=== PATIENT | male | born 1935 | race Caucasian/White ===

== ENCOUNTER 2017-10-22 06:44 | Inpatient (IN) | payer OTHER, MEDICARE ==
[~2017-10-22 06:44] MED LIST: TRANEXAMIC ACID 1,000 MG in NS 100 ML IV ONE
[2017-10-22] MEDS ORDERED: ceFAZolin 2 GM/SWFI 2 GM/20 ML SYR IVP ONE (07:41)
[2017-10-22] MEDS ORDERED: fentaNYL 100 MCG/2 ML INJ IT ONE (07:41)
[2017-10-22] MEDS ORDERED: ACETAMINOPHEN 500 MG TAB PO ONE (07:41)
[2017-10-22] MEDS ORDERED: morphINE PF 5 MG/10 ML INJ IT ONE (07:41)
[2017-10-22] MEDS ORDERED: BACITRACIN 50,000 UNITS/10 ML SYR IRR ONE ×2 (08:09→08:10)
[2017-10-22] MEDS ORDERED: BUPIVACAINE 0.25% 30 ML SDV ONE (08:09)
[2017-10-22] MEDS ORDERED: CITRATE DEXTROSE SOLN 500 ML BAG ONE ×2 (08:09→12:06)
[2017-10-22] MEDS ORDERED: THROMBIN (BOVINE) 5,000 UNIT VIAL TP ONE (08:09)
--- NOTE | 2017-10-22 08:11 | PDANEPAE ---
ANE Past Medical History - Cardiovascular History Hx Hypertension: No Hx Arrhythmias: No Hx Chest Pain: No Hx Coronary Artery / Peripheral Vascular Disease: No Hx CHF / Valvular Disease: No Hx Palpitations: No - Pulmonary History Hx COPD: No Hx Asthma/Reactive Airway Disease: No Hx Recent Upper Respiratory Infection: No Hx Oxygen in Use at Home: No Hx Sleep Apnea: No - Neurologic History Hx Cerebrovascular Accident: No Hx Seizures: No Hx Dementia: No Neurologic History Comment: PARKINSONS - Endocrine History Hx Diabetes: No - Renal History Hx Renal Disorders: No - Liver History Hx Hepatic Disorders: No - Neurological & Psychiatric Hx Hx Neurological and Psychiatric Disorders: Yes Neurological / Psychiatric History Comment: PARKINSON - Cancer History Hx Cancer: Yes Cancer History Comment: SKIN - Congenital Disorder History Hx Congenital Disorders: No - GI History Hx Gastrointestinal Disorders: No - Other Health History Other Health History: bilateral cataracts - Chronic Pain History Chronic Pain: Yes (LOWER BACK) - Surgical History Prior Surgeries: DEEP BRAIN STIMULATOR and stimulators in chest 09/2013 AT [facility]. 2 lumbar back sx. R shoulder replacement. hernia ANE Review of Systems Review of Systems: - Exercise capacity METS (RN): 4 METS ANE Patient History - Allergies Allergies/Adverse Reactions: Penicillins Allergy (Verified 10/22/17 08:08) Unknown - Home Medications Home Medications: Carbidopa/Levodopa 25/100Mg [Sinemet 25/100 MG (*)] 0.5 tab PO QID@06,10,1330, 17 06/17/14 [Last Taken 07/31/15 17:00] Herbals/Supplements -Info Only 1 ea PO DAILY 06/17/14 [Last Taken 10/21/17] Vitamin B Complex [B Complex] 1 each PO DAILY 06/17/14 [Last Taken 10/21/17] clonazePAM [Klonopin (*)] 0.5 mg PO HS 06/17/14 [Last Taken 07/31/15 19:00] Ascorbic Acid [Vitamin C 250 mg (*)] 250 mg PO DAILY 08/01/15 [Last Taken ] Mcclure-3 Fatty Acids [Fish Oil 1000 mg (*)] 1,000 mg PO DAILY 08/01/15 [Last Taken 10/11/17] Acetaminophen [Tylenol 325mg (*)] 325 - 650 mg PO Q4HRS PRN 10/17/17 [Last Taken Unknown] Cholecalciferol Vit D3 [Vitamin D3 (*)] 1,000 units PO DAILY 10/17/17 [Last Taken 10/21/17] Escitalopram Oxalate [Lexapro] 10 mg PO DAILY 10/17/17 [Last Taken Unknown] Ferrous Sulfate [Ferrous Sulf 325 MG (*)] 325 mg PO TID 10/17/17 [Last Taken ] Gabapentin [Neurontin 300 MG (*)] 1,200 mg PO HS 10/17/17 [Last Taken Unknown] Melatonin [Melatonin 5 mg] 5 mg PO HS 10/17/17 [Last Taken Unknown] Pramipexole Di-HCl [Mirapex 0.25 mg (*)] 0.25 mg PO QID@06,10,1330,17 10/17/17 [ Last Taken Unknown] methYLPHENIDATE HCL [Ritalin 10mg (*)] 10 mg PO DAILY@1330 10/17/17 [Last Taken Unknown] - Smoking Hx Smoking Status: Former smoker ANE Labs/Vital Signs - Vital Signs Height: 177.8 cm Weight: 77.111 kg ANE Physical Exam - Airway Mallampati Score: Class 1 - ASA Status ASA Status: II ANE Anesthesia Plan Anesthesia Plan: general endotracheal anesthesia
[2017-10-22 08:55] LABS: PLATELET COUNT 182 10^3/uL (150-400)
[2017-10-22] MEDS ORDERED: LR 1,000 ML IV ONE (08:57)
[2017-10-22] MEDS ORDERED: fentaNYL 100 MCG/2 ML INJ ONE ×3 (08:57→12:09)
[2017-10-22] MEDS ORDERED: PROPOFOL/EMULSION 500 MG/50 ML BOTTLE IV ONE ×3 (08:58→11:32)
[2017-10-22] MEDS ORDERED: CHLORHEXIDINE GLUC HIBICLENS 118 ML BTL TP ONE (09:43)
[2017-10-22] MEDS ORDERED: PHENYLEPHRINE HCL 100 MCG/ML SYR ONE (11:55)
[2017-10-22] MEDS ORDERED: ROCURONIUM 50 MG/5 ML VIAL ONE (11:55)
[2017-10-22] MEDS ORDERED: ONDANSETRON 4 MG/2 ML VIAL ONE (11:55)
[2017-10-22] MEDS ORDERED: METOCLOPRAMIDE 10 MG/2 ML VIAL ONE (11:55)
[2017-10-22] MEDS ORDERED: morphINE PF 5 MG/10 ML INJ ONE (12:09)
[2017-10-22] MEDS ORDERED: ceFAZolin 1 GM VIAL ONE (12:24)
--- NOTE | 2017-10-22 14:00 | POSTOPPROG ---
Post Op Note Date of Operation: 10/22/17 Surgeon: Yang Bolanos Motorcoach Driver: LEVY Lebron Anesthesiologist: Parish Anesthesia: GET(General Endotracheal) Pre-op Diagnosis: L1-3 DJD/Stenosis. Prior L3-S1 fusion Post-op Diagnosis: same Indication: neurogenic claudication/DJD, spinal stenosis Procedure: Hdwr removal L3-S1. L1/2,2/3 TLIF L1-L4 instrumentation Findings: severe stenosis/djd Inf/Abcess present in the surg proc area at time of surgery?: No EBL: 500-1000 Total fluids administered: 500ml cell saver. 2700 crystalloid Drains: Tarik Treadwell (to bulb suction) Specimen(s): none
[2017-10-22] MEDS ORDERED: morphINE PCA 30 MG/30 ML PCA IV PRN (14:09)
[2017-10-22] MEDS ORDERED: ONDANSETRON DISINTEGRATING 4 MG TAB PO PRN (14:09)
[2017-10-22] MEDS ORDERED: NALOXONE HCL 0.4 MG/ML INJ IVP PRN ×2 (14:09→14:15)
[2017-10-22] MEDS ORDERED: BISACODYL 10 MG SUPP PR PRN (14:09)
[2017-10-22] MEDS ORDERED: diphenhydrAMINE 25 MG CAP PO PRN (14:09)
[2017-10-22] MEDS ORDERED: LACTULOSE 20 GM/30 ML UDCUP PO PRN (14:09)
[2017-10-22] MEDS ORDERED: MAGNESIUM HYDROXIDE 30 ML UDCUP PO PRN (14:09)
[2017-10-22] MEDS ORDERED: ONDANSETRON 4 MG/2 ML VIAL IVP PRN ×2 (14:09→14:15)
[2017-10-22] MEDS ORDERED: fentaNYL 100 MCG/2 ML INJ IVP PRN (14:15)
[2017-10-22] MEDS ORDERED: MEPERIDINE 25 MG/ML SYR IVP PRN (14:15)
[2017-10-22] MEDS ORDERED: LR 500 ML IV PRN (14:15)
--- NOTE | 2017-10-22 14:16 | POSTANESTH ---
Post Anesthetic Evaluation Cardiovascular Status: Normal, Stable Respiratory Status: Normal, Stable Level of Consciousness/Mental Status: Can Participate in Eval, Mildly Sleepy, Arousable Pain Control: Adequate, Prn Tx Ordered Nausea/Vomiting Control: Adequate, Prn Tx Ordered Complications Possibly Related to Anesthesia: None Noted
--- NOTE | 2017-10-22 14:27 | SOAPPROG ---
SOAP Progress Note Assessment/Plan: Post op check: Assessment Doing well s/p L1-L4 fusion with L3-S1 hardware removal and L1-3 TLIFs Plan: CM in PACU, MADELINE to bulb suction transfer to floor per protocol 10/22/17 14:24 Subjective: Eyes closed, opens to voice stimulation. Appears comfortable. Objective: Vital Signs Temp Pulse Resp BP Pulse Ox 36.4 C 62 16 104/70 91 L 10/22/17 08:13 10/22/17 08:13 10/22/17 08:13 10/22/17 08:13 10/22/17 08:13 Laboratory Results 10/22/17 08:40 Neuro: GARCIA to command sens +LT preexisting Right DF/EHL weakness (unchanged) PERRLA, EOMI Vital: HR: 77 O2: 97 % face mask BP: 145/76 ICD10 Worksheet Patient Problems: Problems Problem Status Onset Fusion of lumbar spine Acute Parkinson disease Acute Spinal arthrodesis present Acute
[2017-10-22] MEDS: CARBIDOPA/LEVODOPA 25 MG/100 MG TAB PO SCH ×2 (14:56→17:38)
[2017-10-22] MEDS: POLYETHYLENE GLYCOL 3350 17 GM PKT PO SCH ×2 (16:43→20:56)
[2017-10-22] MEDS: FERROUS SULFATE 325 MG TAB PO SCH ×2 (16:43→20:53)
[2017-10-22] MEDS: METHOCARBAMOL 750 MG TAB PO PRN (17:38)
[2017-10-22] MEDS: oxyCODONE IR 5 MG TAB PO PRN (17:39)
[2017-10-22] MEDS: PRAMIPEXOLE 0.25 MG TAB PO SCH (17:39)
[2017-10-22] MEDS: ceFAZolin 2 GM/DEXTROSE 100 ML IV SCH (17:40)
[2017-10-22] MEDS: ACETAMINOPHEN 500 MG TAB PO SCH (19:17)
[2017-10-22] MEDS: PETROLAT,WHT/MIN OIL/SOD CHL 3.5 GM OPHT.OINT RTEYE PRN (19:17)
[2017-10-22] MEDS: FAMOTIDINE 20 MG TAB PO SCH (20:53)
[2017-10-22] MEDS: GABAPENTIN 300 MG CAP PO SCH (20:54)
[2017-10-22] MEDS: morphINE SR 15 MG TAB PO SCH (20:55)
[2017-10-22] MEDS: MELATONIN 3 MG TAB PO SCH (20:55)
[2017-10-22] MEDS: SENNOSIDES/DOCUSATE SODIUM TAB PO SCH (20:57)
[2017-10-22] MEDS ORDERED: NON-FORMULARY NEW DRUG (Melatonin [Melatonin 5 Mg] 5 MG) PO SCH (21:00)
--- NOTE | 2017-10-22 21:00 | GCON ---
[f rep st] CONSULTATION REFERRING PHYSICIAN: Yang Bolanos MD CONSULTING QUESTION: Postoperative medical management. HISTORY OF PRESENT ILLNESS: This is an 82-year-old male, who presented today for L1-L2 and L3-L3 fus ion with hardware removal L3-S1. Patient is postoperative and feeling well. Patient denies any ches t pain, palpitations, shortness of breath, is anxious to have the oxygen taken off. Does feel tired and is reporting significant back discomfort. Denies any abdominal pain. Denies any nausea, vomitin g. Does report a poor appetite. Denies any pain in his lower extremities, any numbness or tingling. PAST MEDICAL HISTORY: 1. L3 through S1 fusion. 2. Parkinson, sensory-motor mixed generalized polyneuropathy. 3. Deep brain stimulator. 4. Arthroscopic shoulder surgery. SOCIAL HISTORY: Negative for tobacco, alcohol, or illicit drugs. FAMILY HISTORY: Both parents are . REVIEW OF SYSTEMS: A 10-point review of systems is negative with the exception of that reported in t he HPI. PHYSICAL EXAMINATION: VITAL SIGNS: Blood pressure 141/72, pulse 90, respiratory rate 14, 91% on 2 L , 37.0. GENERAL: Healthy-appearing male in no acute distress. HEENT: Notable for dry mucous membr anes. Eye exam is negative for any icterus. He does have a patch over his right eye. CARDIAC: Reg ular rate and rhythm. No murmurs. PULMONARY: Clear to auscultation bilaterally. GASTROINTESTINAL: Positive bowel sounds. Abdomen is soft and nontender. MUSCULOSKELETAL: Negative for any lower ext remity edema. SKIN: Negative for any rashes. NEUROLOGIC: Alert and oriented x3. PSYCHIATRIC: He is pleasant and cooperative on the interview and examination. DATA: White count 4.3, hematocrit 39.8. Most recent lumbar spine x-ray, which I personally reviewed and interpreted, shows postsurgical changes of his fusion. ASSESSMENT AND PLAN: This is an 82-year-old male, status post hardware removal L3-S1 with L1-L2 and L2-L3 transforaminal lumbar interbody fusion. 1. Parkinson. Patient is on very stable outpatient regimen, which we will continue with his specifi c timing. No changes will be made to that during his inpatient stay. 2. Status post hardware removal with L1-L2, L2-L3 transforaminal lumbar interbody fusion. Will foll ow postoperative orders per Neurosurgery. 3. Prophylaxis, also per Neurosurgery. 4. Diet, regular. DISPOSITION: Expecting greater than 2 midnights as the patient is just hours postop and will require postoperative recovery. Thank you for the consultation. We will follow along with. /[id number]/MODL
--- NOTE | 2017-10-23 00:10 | GOP ---
[f rep st] OPERATIVE REPORT DATE OF OPERATION: 10/22/2017 SURGEON: Yang Bolanos MD PREOPERATIVE DIAGNOSIS: Severe adjacent level degeneration and disk space collapse with severe spina l stenosis at L1-2 and L2-3, status post prior L3 through S1 decompression and stabilization with ins trumentation. POSTOPERATIVE DIAGNOSIS: Severe adjacent level degeneration and disk space collapse with severe spin al stenosis at L1-2 and L2-3, status post prior L3 through S1 decompression and stabilization with in strumentation. PROCEDURE PERFORMED: Removal of posterior segmental instrumentation from L3 to L5 with exploration o f spinal fusion at L5-S1. Placement of posterior segmental (pedicle screw and axial device) fixation from L1-L4 with right-sided far lateral transpedicular decompressions at L1-2 and L2-3. L1-2 and L2 -3 posterior/transforaminal lumbar interbody fusion with 2 structural PEEK interbody spacers, local a utograft and bone morphogenic protein at each level. Use of intraoperative microscopy, fluoroscopy, and computer volumetric stereotactic navigation with intraoperative neurophysiologic testing. Inject ion of intrathecal narcotic analgesics for postoperative pain control. Redo right L3-4 posterior hem ilaminectomy, medial facetectomy, and foraminotomy. FINDINGS: INDICATIONS: The patient is an 82-year-old man who has undergone multiple prior surgeries including a multilevel lumbosacral decompression and stabilization procedure with instrumentation, who has kalpana re adjacent level degeneration at the L1-2 and L2-3 levels with spinal stenosis and massive facet hyp ertrophy. He has intractable low back pain and swllz-isqibiw-ltbf-left lower extremity radicular cindy rogenic claudication symptoms and has failed to improve with extensive conservative care, and he pres ents now for removal and replacement of instrumentation and extension of the fusion. DESCRIPTION OF PROCEDURE: After informed consent was obtained, the patient was taken to the operatin g room and placed in the prone position on the Tarik table. The thoracolumbosacral areas were prep ped and draped in a sterile fashion. After fluoroscopic localization of the correct levels, the subc utaneous and intramuscular tissues were infiltrated with local anesthesia. A midline linear incision was then created from approximately L1 through S1. This was carried down to the fascial layer, whic h was then incised using the monopolar electrocautery and carried in the subfascial plane along the s pinous processes and lamina bilaterally. Intraoperative fluoroscopy was again utilized to verify the correct levels. Following this, dissection was carried out over the facet joints at L1-2 and L2-3 a nd over the instrumentation more caudally. The prior posterior segmental instrumentation was careful ly removed and the prior fusion explored at L5-S1. The microscope was then brought in, and under hig h-power microscopic visualization, right-sided far lateral transpedicular decompressions were perform ed at the L1-2 and L2-3 levels with a redo posterior hemilaminectomy and medial facetectomy and enzo inotomy at the L3-4 level on the right. Following adequate decompression, the TestifgatAsterisk nal System was brought in, and using computer volumetric stereotactic navigation, pedicle screws were placed at L1, L2, L3, and L4 bilaterally. Each individual screw was tested neurophysiologically wit h monopolar electrostimulation and interpretation of the potentials by the surgeon. Short segment ro ds were then placed first at L1-2, then at L2-3, during which time distraction was created across the interspaces, and complete diskectomies were performed with preparation of the endplates and placemen t of 2 structural PEEK interbody spacers, local autograft, and bone morphogenic protein at each level for L1-2 and L2-3 posterior/transforaminal lumbar interbody fusions. The small rods were then remov ed and longer rods placed and secured from L1 through L4 bilaterally with maximal lordosis in order t o prevent flat back syndrome. A slight amount of compression was placed across the interspaces to fa cilitate bony union and to minimize the potential for posterior graft migration. The wound was then copiously irrigated with antibiotic irrigation, and meticulous hemostasis was achieved. 200 mcg of D uramorph and 50 mcg of fentanyl were injected intrathecally for postoperative pain control. The siri ining lamina and facet joints were then extensively decorticated from L1 through L4 and the residual local autograft along with bone morphogenic protein and morselized allograft was placed out laterally from L1 through L4 for posterolateral fusion. The L5-S1 level was explored and inspected and noted to be solid. A drain was then placed. The subcutaneous and intramuscular tissues were re-infiltrate d with local anesthesia, and the wound was closed in a layered fashion using interrupted Vicryl sutur e, followed by Steri-Strips on the skin. DISPOSITION: The patient was extubated and transported to the recovery room in stable condition. /[id number]/MODL
[2017-10-23] MEDS: ceFAZolin 2 GM/DEXTROSE 100 ML IV SCH (02:37)
[2017-10-23] MEDS: oxyCODONE IR 5 MG TAB PO PRN ×3 (02:46→21:34)
[2017-10-23] MEDS: ACETAMINOPHEN 500 MG TAB PO SCH ×3 (02:47→18:21)
[2017-10-23 05:42] LABS: PLATELET COUNT 160 10^3/uL (150-400)
[2017-10-23] MEDS: CARBIDOPA/LEVODOPA 25 MG/100 MG TAB PO SCH ×4 (06:15→17:13)
[2017-10-23] MEDS: PRAMIPEXOLE 0.25 MG TAB PO SCH ×4 (06:16→17:10)
--- NOTE | 2017-10-23 07:48 | SOAPPROG ---
SOAP Progress Note Assessment/Plan: Assessment: POD #1 Doing well s/p L1-L4 fusion with L3-S1 hardware removal and L1-3 TLIFs bilateral LE sensation improved. H/O DBS and Parkinsons Plan: Hospitalists assisting with med mgmt. Continue MADELINE to bulb suction PT/OT Xrays today if he can tolerate 10/23/17 07:50 Subjective: lying in bed, asleep - wakes easily and states he is comfortable. States the sensation is better in both legs, still with some paresthesias in LLE below knee. Pain well controlled. Objective: Vital Signs Temp Pulse Resp BP Pulse Ox 38.1 C 80 16 116/52 L 95 10/23/17 04:09 10/23/17 04:09 10/23/17 04:09 10/23/17 04:09 10/23/17 04:09 Laboratory Results 10/23/17 05:12 10/23/17 05:12 10/22/17 10/23/17 10/24/17 05:59 05:59 05:59 Intake Total 3825 100 Output Total 1928 Balance 1897 100 Neuro: GARCIA to commands sens +LT chronic Right DF/EHL weakness MADELINE: 328 ICD10 Worksheet Patient Problems: Problems Problem Status Onset Fusion of lumbar spine Acute Parkinson disease Acute Spinal arthrodesis present Acute
[2017-10-23] MEDS: ENOXAPARIN 40 MG/0.4 ML SYR SC SCH (08:29)
[2017-10-23] MEDS: POLYETHYLENE GLYCOL 3350 17 GM PKT PO SCH ×3 (08:29→21:26)
[2017-10-23] MEDS: ESCITALOPRAM OXALATE 10 MG TAB PO SCH (08:30)
[2017-10-23] MEDS: VITAMIN B COMPLEX 1 EA CAP/TAB PO SCH (08:30)
[2017-10-23] MEDS: CHOLECALCIFEROL VIT D3 1,000 UNITS TAB PO SCH (08:30)
[2017-10-23] MEDS: FERROUS SULFATE 325 MG TAB PO SCH ×3 (08:30→21:29)
[2017-10-23] MEDS: ASCORBIC ACID 250 MG TAB PO SCH (08:31)
[2017-10-23] MEDS: SENNOSIDES/DOCUSATE SODIUM TAB PO SCH ×2 (08:33→21:33)
[2017-10-23] MEDS: FAMOTIDINE 20 MG TAB PO SCH ×2 (08:33→21:31)
[2017-10-23] MEDS: morphINE SR 15 MG TAB PO SCH ×2 (08:34→21:32)
[2017-10-23] MEDS: PETROLAT,WHT/MIN OIL/SOD CHL 3.5 GM OPHT.OINT RTEYE PRN (08:34)
--- NOTE | 2017-10-23 10:42 | ASMTCASEMG ---
Living Arrangements What is your living Answers: Alone arrangement? Who do you live with? Type Of Residence What kind of residence do Answers: House you live in? Discharge Plan Comments Coordination Status Comments Notes: Pt is a 82 y/o man admitted for a adjacent level disease. PT and OT has been ordered and awaiting recommendations. Needs are TBD at this time. CM to follow. Plan: TBD Date Signed: 10/23/2017 10:41 AM Electronically Signed By:SEGUNDO Ralph
--- NOTE | 2017-10-23 15:14 | ASMTCMCOM ---
CM Note CM Note Notes: Therapies are recommending inpatient rehab at this time. Dr. Holden will put in an order for inpatient rehab. Gabby King to continue to assess and eval for appropriateness of inpatient rehab. CM to follow. Plan: Inpatient rehab Date Signed: 10/23/2017 03:13 PM Electronically Signed By:SEGUNDO Ralph
--- NOTE | 2017-10-23 16:37 | ASMTCMCOM ---
CM Note CM Note Notes: Ref[facility] as per Ben Mayer [phone] with Abhijit Kerry and JUDSON this is pt first choice for inokt rehab. CM to follow. Date Signed: 10/23/2017 04:36 PM Electronically Signed By:KISHORE Villafana
[2017-10-23] MEDS: METHOCARBAMOL 750 MG TAB PO PRN (17:10)
--- NOTE | 2017-10-23 18:37 | HOSPPROG ---
Hospitalist Progress Note Assessment/Plan: Patient is an 82yo M with PMH Parkinson disease who was admitted for lumbar/ spine surgery by Dr. Bolanos. L/S spine DJD, s/p lumbar fusion, hardware removal, w/ TLIF POD #1 Gen weakness, postop. Parkinson disease, s/p DBS -Expect motor function to improve. Continue PT/OT. -DBS interrogated recently. If no improvement in motor function by tomorrow, [employer] rep to interrogate device again. -prn analgesics for postop pain. O2 dependence via NC, postop -will likely improve. Continue ISU. R drop foot, chronic Anemia, mild -hemodynamically stable. -VTE ppx - Lovenox. Code status - full. Dispo - med surg. Order for Acute Rehab. This pt is new to me. Reviewed chart for this visit. Subjective: Today pt feels no pain. He has not had to use pain medication recently. He admits he feels very weak, was unable to walk. Objective: Vital Signs Temp Pulse Resp BP Pulse Ox 36.4 C 94 16 123/67 H 93 10/23/17 16:00 10/23/17 16:00 10/23/17 16:00 10/23/17 16:00 10/23/17 16:00 Laboratory Results 10/23/17 05:12 10/23/17 05:12 10/22/17 10/23/17 10/24/17 05:59 05:59 05:59 Intake Total 3825 100 Output Total 1928 655 Balance 1897 -555 Gen: elderly M, A&O, NAD. HEENT: EOMI, MM dry. CV: RRR, no MRG. Resp: CTAB no RRW. Abd: SND. MSK: nl muscle tone/bulk. unable to dorsiflex R foot. b/l plantarflexion 4/5 strength. Neuro: CN II-XII grossly intact. Psych: approp mood/affect. Skin: no pallor. ICD10 Worksheet Patient Problems: Problems Problem Status Onset Fusion of lumbar spine Acute Parkinson disease Acute Spinal arthrodesis present Acute
[2017-10-23] MEDS: MELATONIN 3 MG TAB PO SCH (21:26)
[2017-10-23] MEDS: GABAPENTIN 300 MG CAP PO SCH (21:30)
[2017-10-24] MEDS: CARBIDOPA/LEVODOPA 25 MG/100 MG TAB PO SCH ×4 (05:59→17:04)
[2017-10-24] MEDS: PRAMIPEXOLE 0.25 MG TAB PO SCH ×4 (06:00→17:05)
[2017-10-24] MEDS: oxyCODONE IR 5 MG TAB PO PRN (06:00)
[2017-10-24] MEDS: ACETAMINOPHEN 500 MG TAB PO SCH ×3 (06:59→19:18)
--- NOTE | 2017-10-24 07:45 | SOAPPROG ---
SOAP Progress Note Assessment/Plan: Assessment: 82 yo M sp L1-4 fusion with L1-3 TLIF Plan: neuro: somnolent this am, likely over sedated from narcotics. Will hold MScontin and continue to monitor closely PT/OT LSO brace when out of bed scd/veena/lovenox for dvt prophylaxis keep MADELINE for now patient seen with DR Nix please call with neuro changes 10/24/17 07:36 10/24/17 07:37 10/24/17 07:46 Subjective: chart reviewed, patient somnolent this am Objective: Vital Signs Temp Pulse Resp BP Pulse Ox 36.4 C 95 16 137/60 H 88 L 10/24/17 04:00 10/24/17 04:00 10/24/17 04:00 10/24/17 04:00 10/24/17 04:00 Laboratory Results 10/23/17 05:12 10/23/17 05:12 10/23/17 10/24/17 10/25/17 05:59 05:59 05:59 Intake Total 3825 100 Output Total 1928 1035 Balance 1897 -935 somnolent, opens eyes to voice PERRL, no facial droop CESAR x 4 + light touch C/D/I ICD10 Worksheet Patient Problems: Problems Problem Status Onset Fusion of lumbar spine Acute Parkinson disease Acute Spinal arthrodesis present Acute
[2017-10-24] MEDS: ENOXAPARIN 40 MG/0.4 ML SYR SC SCH (09:54)
[2017-10-24] MEDS: SENNOSIDES/DOCUSATE SODIUM TAB PO SCH ×2 (09:54→21:43)
[2017-10-24] MEDS: ESCITALOPRAM OXALATE 10 MG TAB PO SCH (09:54)
[2017-10-24] MEDS: VITAMIN B COMPLEX 1 EA CAP/TAB PO SCH (09:55)
[2017-10-24] MEDS: FAMOTIDINE 20 MG TAB PO SCH ×2 (09:55→21:43)
[2017-10-24] MEDS: FERROUS SULFATE 325 MG TAB PO SCH ×3 (09:55→21:49)
[2017-10-24] MEDS: POLYETHYLENE GLYCOL 3350 17 GM PKT PO SCH ×3 (09:55→21:49)
[2017-10-24] MEDS: ASCORBIC ACID 250 MG TAB PO SCH (10:02)
[2017-10-24] MEDS: CHOLECALCIFEROL VIT D3 1,000 UNITS TAB PO SCH (10:02)
--- NOTE | 2017-10-24 12:00 | HOSPPROG ---
Hospitalist Progress Note Assessment/Plan: Patient is an 82yo M with PMH Parkinson disease who was admitted for lumbar/ spine surgery by Dr. Bolanos. First encounter, chart reviewed. D/W RN at bedside. L/S spine DJD s/p lumbar fusion, hardware removal, w/ TLIF POD #2 Gen weakness, postop. Parkinson disease, s/p DBS -Expect motor function to improve. Continue PT/OT. -DBS interrogated recently. -prn analgesics for postop pain. Acute hypoxemic resp failure -postop -will likely improve. -CXR shows ATX - also side effect from narcotics R drop foot, -chronic Anemia, mild -hemodynamically stable. Lethargy -likely related to narcotics -DC long acting -cont supportive care -VTE ppx - Lovenox. Code status - full. Dispo - med surg. Order for Acute Rehab. This pt is new to me. Reviewed chart for this visit. Subjective: No pain. Confused. Objective: Vital Signs Temp Pulse Resp BP Pulse Ox 36.4 C 104 H 16 111/72 87 L 10/24/17 11:48 10/24/17 11:48 10/24/17 11:48 10/24/17 11:48 10/24/17 11:48 Laboratory Results 10/23/17 05:12 10/23/17 05:12 10/23/17 10/24/17 10/25/17 05:59 05:59 05:59 Intake Total 3825 100 Output Total 1928 1035 130 Balance 1897 -935 -130 - Physical Exam Constitutional: appears nourished, not in pain, chronically ill appearing Eyes: PERRL, anicteric sclera, EOMI Ears, Nose, Mouth, Throat: moist mucous membranes, hearing normal, ears appear normal Cardiovascular: No JVD, No tachycardia, No edema Respiratory: no respiratory distress, no rales or rhonchi, reduced air movement Gastrointestinal: No tenderness, No ascites, No distension Skin: warm, normal color, No mottled Musculoskeletal: no joint effusions, pain with ROM, generalized weakness Neurologic: No AAOx3 Psychiatric: not anxious, poor insight, poor judgement, poor memory ICD10 Worksheet Patient Problems: Problems Problem Status Onset Spinal arthrodesis present Acute Parkinson disease Acute Fusion of lumbar spine Acute
--- NOTE | 2017-10-24 14:29 | ASMTCMCOM ---
CM Note CM Note Notes: Awa Roblero with [facility] ([phone]) received referral and will assess pt. CM to follow. Date Signed: 10/24/2017 02:28 PM Electronically Signed By:KISHORE Villafana
[2017-10-24] MEDS: MELATONIN 3 MG TAB PO SCH (21:43)
[2017-10-24] MEDS: GABAPENTIN 300 MG CAP PO SCH (21:44)
[2017-10-25] MEDS ORDERED: clonazePAM 0.5 MG TAB PO ONE ×2 (01:00→23:15)
[2017-10-25] MEDS: ACETAMINOPHEN 500 MG TAB PO SCH ×3 (03:23→20:20)
[2017-10-25] MEDS: CARBIDOPA/LEVODOPA 25 MG/100 MG TAB PO SCH ×4 (06:27→16:58)
[2017-10-25] MEDS: PRAMIPEXOLE 0.25 MG TAB PO SCH ×4 (06:27→16:58)
--- NOTE | 2017-10-25 08:19 | NEUSURGPN ---
Date of Surgery: 10/22/17 Post Op Day: 3 Assessment/Plan: Assessment: 82 yo M sp L1-4 fusion with L1-3 TLIF Plan: - neuro stable - pain controlled without MS Contin - wear brace when out of bed - continue MADELINE - appreciate medicine following - PT/OT - SCDs/TEDs/Lovenox - dispo: plan for rehab, possibly tomorrow if arranged - please contact neurosurgery with any changes in neuro status/exam Subjective: Feeling much better this morning off of the MS Contin. Patient does not have any pain. Doing well. Objective: Awake. Alert. PERRL. EOMI Following commands Muscle strength full at 5/5 Sensation intact Catheter Insertion Date: 10/22/17 - Physician Discussed Patient with : Luis Miguel Neurosurgery Physical Exam - Vitals, I&O, Labs I and O 10/24/17 10/25/17 10/26/17 05:59 05:59 05:59 Intake Total 100 950 Output Total 1035 855 Balance -935 95 Intake: Oral (ml) 950 IV Infused (ml) 100 ceFAZolin 2 GM/DEXTROSE 100 100 ml @ 200 mls/hr IV Q8H [facility] Rx#:[id number] Output: Urine (ml) 625 650 Urinal 625 650 MADELINE Drain Output (ml) 410 205 Back 410 205 Other: Intake Quantity Yes Yes Sufficient Number of Voids Urinal 1 1 Vital Signs Temp Pulse Resp BP Pulse Ox 36.6 C 86 18 103/58 L 92 10/25/17 00:00 10/25/17 00:00 10/25/17 00:00 10/25/17 00:00 10/25/17 00:00 Laboratory Results 10/23/17 05:12 10/23/17 05:12 ICD10 Worksheet Patient Problems: Problems Problem Status Onset Fusion of lumbar spine Acute Parkinson disease Acute Spinal arthrodesis present Acute
[2017-10-25] MEDS: POLYETHYLENE GLYCOL 3350 17 GM PKT PO SCH ×3 (09:16→23:08)
[2017-10-25] MEDS: ENOXAPARIN 40 MG/0.4 ML SYR SC SCH (09:17)
[2017-10-25] MEDS: ESCITALOPRAM OXALATE 10 MG TAB PO SCH (09:17)
[2017-10-25] MEDS: VITAMIN B COMPLEX 1 EA CAP/TAB PO SCH (09:17)
[2017-10-25] MEDS: ASCORBIC ACID 250 MG TAB PO SCH (09:17)
[2017-10-25] MEDS: FAMOTIDINE 20 MG TAB PO SCH ×2 (09:17→20:38)
[2017-10-25] MEDS: SENNOSIDES/DOCUSATE SODIUM TAB PO SCH ×2 (09:17→20:39)
[2017-10-25] MEDS: FERROUS SULFATE 325 MG TAB PO SCH ×3 (09:17→23:08)
[2017-10-25] MEDS: CHOLECALCIFEROL VIT D3 1,000 UNITS TAB PO SCH (09:17)
[2017-10-25] MEDS: oxyCODONE IR 5 MG TAB PO PRN ×2 (12:27→16:58)
--- NOTE | 2017-10-25 14:42 | HOSPPROG ---
Hospitalist Progress Note Assessment/Plan: Patient is an 82yo M with PMH Parkinson disease who was admitted for lumbar/ spine surgery by Dr. Bolanos. D/W RN L/S spine DJD s/p lumbar fusion, hardware removal, w/ TLIF POD #3 Gen weakness, postop. Parkinson disease, s/p DBS -Expect motor function to improve. Continue PT/OT. -DBS interrogated recently. -prn analgesics for postop pain. Acute hypoxemic resp failure -postop -will likely improve. -CXR shows ATX - also side effect from narcotics R drop foot, -chronic Anemia, mild -hemodynamically stable. Lethargy -resovled -likely related to narcotics -DC long acting -cont supportive care -VTE ppx - Lovenox. Code status - full. Dispo - med surg. Order for Acute Rehab. Subjective: Feeling better today. Pain stable. Objective: Vital Signs Temp Pulse Resp BP Pulse Ox 36.9 C 85 16 121/61 H 92 10/25/17 08:00 10/25/17 08:00 10/25/17 08:00 10/25/17 08:00 10/25/17 08:00 Laboratory Results 10/23/17 05:12 10/23/17 05:12 10/24/17 10/25/17 10/26/17 05:59 05:59 05:59 Intake Total 100 950 Output Total 1035 855 400 Balance -935 95 -400 - Physical Exam Constitutional: appears nourished, not in pain, chronically ill appearing Eyes: PERRL, anicteric sclera, EOMI Ears, Nose, Mouth, Throat: moist mucous membranes, hearing normal, ears appear normal Cardiovascular: No JVD, No tachycardia, No edema Respiratory: no respiratory distress, no rales or rhonchi, reduced air movement Gastrointestinal: normoactive bowel sounds, No tenderness, No ascites Skin: warm, normal color, No erythema Musculoskeletal: pain with ROM, muscular tenderness, generalized weakness Neurologic: AAOx3 Psychiatric: interacting appropriately, not anxious, poor memory ICD10 Worksheet Patient Problems: Problems Problem Status Onset Spinal arthrodesis present Acute Parkinson disease Acute Fusion of lumbar spine Acute
--- NOTE | 2017-10-25 16:51 | ASMTCMCOM ---
CM Note CM Note Notes: [facility] over the weekend if medically stable. They would require marycruz drains removed prior to d/c. Awa Roblero in admissions states CM should call [phone] over the weekend to arrange d/c. Date Signed: 10/25/2017 04:51 PM Electronically Signed By:KISHORE Villafana
[2017-10-25] MEDS: MELATONIN 3 MG TAB PO SCH (20:38)
[2017-10-25] MEDS: GABAPENTIN 300 MG CAP PO SCH (20:38)
[2017-10-25 23:47] VITALS: O2SAT 96
[2017-10-26] MEDS: ACETAMINOPHEN 500 MG TAB PO SCH ×2 (03:44→12:58)
[2017-10-26] MEDS: CARBIDOPA/LEVODOPA 25 MG/100 MG TAB PO SCH ×3 (06:23→13:29)
[2017-10-26] MEDS: PRAMIPEXOLE 0.25 MG TAB PO SCH ×3 (06:24→13:29)
--- NOTE | 2017-10-26 07:53 | NEUSURGPN ---
Date of Surgery: 10/22/17 Post Op Day: 4 Assessment/Plan: Assessment: 82 yo M sp L1-4 fusion with L1-3 TLIF POD #4 Plan: -neuro stable except for a slight LUGO and double vision -CT head pending this am -pain controlled without MS Contin -wear brace when out of bed -continue MADELINE-will dc prior to pt being dc home today -appreciate medicine following -PT/OT-CPM -SCDs/TEDs/Lovenox -dispo: plan for rehab, possibly today if arranged -please contact neurosurgery with any changes in neuro status/exam Subjective: Awake and alert. NAD. Eating/drinking and voiding. Pt with new LUGO and some double vision. No lugo/neck/chest/abd or gu complaints Objective: Awake. Alert. PERRL. EOMI Following commands Muscle strength full at 5/5 Sensation intact Neuro Check Frequency: per routine Urinary Catheter in Place: No Catheter Insertion Date: 10/22/17 - Physician Discussed Patient with : Luis Miguel Neurosurgery Physical Exam - Vitals, I&O, Labs I and O 10/25/17 10/26/17 10/27/17 05:59 05:59 05:59 Intake Total 950 1400 Output Total 855 625 310 Balance 95 775 -310 Intake: Oral (ml) 950 1400 Output: Urine (ml) 650 550 300 Urinal 650 550 300 MADELINE Drain Output (ml) 205 75 10 Back 205 75 10 Other: Intake Quantity Yes Yes Sufficient Output Comment Urinal pt spilled urinal Number of Voids Incontinence 2 Urinal 1 1 1 Number of Stools Urinal 1 Vital Signs Temp Pulse Resp BP Pulse Ox 36.8 C 89 18 122/58 H 96 10/25/17 23:46 10/25/17 23:46 10/25/17 23:46 10/25/17 23:46 10/25/17 23:46 Laboratory Results 10/23/17 05:12 10/23/17 05:12 ICD10 Worksheet Patient Problems: Problems Problem Status Onset Fusion of lumbar spine Acute Parkinson disease Acute Spinal arthrodesis present Acute
[2017-10-26 07:59] VITALS: BP 114/61; PULSE 78; RESP 16; TEMP 97.8
[2017-10-26] MEDS: POLYETHYLENE GLYCOL 3350 17 GM PKT PO SCH (09:13)
[2017-10-26] MEDS: FAMOTIDINE 20 MG TAB PO SCH (09:14)
[2017-10-26] MEDS: ENOXAPARIN 40 MG/0.4 ML SYR SC SCH (09:14)
[2017-10-26] MEDS: oxyCODONE IR 5 MG TAB PO PRN ×2 (09:14→13:29)
[2017-10-26] MEDS: VITAMIN B COMPLEX 1 EA CAP/TAB PO SCH (09:14)
[2017-10-26] MEDS: ESCITALOPRAM OXALATE 10 MG TAB PO SCH (09:15)
[2017-10-26] MEDS: SENNOSIDES/DOCUSATE SODIUM TAB PO SCH (09:15)
[2017-10-26] MEDS: ASCORBIC ACID 250 MG TAB PO SCH (09:15)
[2017-10-26] MEDS: FERROUS SULFATE 325 MG TAB PO SCH (09:15)
[2017-10-26] MEDS: CHOLECALCIFEROL VIT D3 1,000 UNITS TAB PO SCH (09:15)
--- NOTE | 2017-10-26 10:32 | PDIAF ---
- Diagnosis Diagnosis: s/p L spine fusion Code Status: Full Code - Medication Management Discharge Medications: Medications to Continue on Transfer Carbidopa/Levodopa 25/100Mg [Sinemet 25/100 MG (*)] 0.5 tab PO QID@06,10,1330, 17 06/17/14 [Last Taken 10/22/17] Herbals/Supplements -Info Only 1 ea PO DAILY 06/17/14 [Last Taken 10/21/17] Vitamin B Complex [B Complex] 1 each PO DAILY 06/17/14 [Last Taken 10/21/17] Ascorbic Acid [Vitamin C 250 mg (*)] 250 mg PO DAILY 08/01/15 [Last Taken ] [place]-3 Fatty Acids [Fish Oil 1000 mg (*)] 1,000 mg PO DAILY 08/01/15 [Last Taken 10/11/17] Cholecalciferol Vit D3 [Vitamin D3 (*)] 1,000 units PO DAILY 10/17/17 [Last Taken 10/21/17] Escitalopram Oxalate [Lexapro 10 MG] 10 mg PO DAILY 10/17/17 [Last Taken ] Ferrous Sulfate [Ferrous Sulf 325 MG (*)] 325 mg PO TID 10/17/17 [Last Taken ] Gabapentin [Neurontin 300 MG (*)] 1,200 mg PO HS 10/17/17 [Last Taken 10/21/17] Melatonin [Melatonin 5 mg] 5 mg PO HS 10/17/17 [Last Taken 10/21/17] Pramipexole Di-HCl [Mirapex 0.25 mg (*)] 0.25 mg PO QID@06,10,1330,17 10/17/17 [ Last Taken 10/22/17] methYLPHENIDATE HCL [Ritalin 10mg (*)] 10 mg PO DAILY@1330 10/17/17 [Last Taken 10/21/17] Acetaminophen [Tylenol ES 500 mg (*)] 1,000 mg PO Q8H tab 10/26/17 [Last Taken Unknown] Enoxaparin [Lovenox 40 MG (*)] 40 mg SC DAILY #10 syr 10/26/17 [Last Taken Unknown] Methocarbamol [Robaxin 750 mg (*)] 750 mg PO QID PRN #60 tab 10/26/17 [Last Taken Unknown] Petrolat,Wht/Min Oil/Sod Chl [Refresh P.m. Ointment] 1 donald RTEYE PRN PRN opht.oint 10/26/17 [Last Taken Unknown] Sennosides/Docusate Sodium [Senokot-S] 1 - 2 tab PO BID #30 tab 10/26/17 [Last Taken Unknown] clonazePAM [Klonopin (*)] 0.5 mg PO HS #14 tab 10/26/17 [Last Taken Unknown] oxyCODONE IR [Oxycodone Ir (*)] 5 - 10 mg PO Q4HRS PRN #90 tab 10/26/17 [Last Taken Unknown] Rate Clerk Antibiotics: none Discharge Medications: Refer to the Discharge Home Medication list for PRN reason. PICC Care - Routine: N/A - Orders Services needed: Registered Nurse, Certified Director Fixed Income, Master Seo Intern , Physical Therapy, Occupational Therapy Isolation Type: None Oxygen: to keep O2 sat above 90% Diet Recommendation: no restrictions on diet Diet Texture: Regular Texture Diet Almaraz: Not applicable - Follow Up Care Current Providers and Referrals: CLEMENTE BARKLEY [Primary Care Provider] - Yang Bolanos MD [Medical Doctor] - (follow up in 2 weeks)
--- NOTE | 2017-10-26 10:52 | HOSPPROG ---
Hospitalist Progress Note Assessment/Plan: Patient is an 82yo M with PMH Parkinson disease who was admitted for lumbar/ spine surgery by Dr. Bolanos. D/W Jose L Plascencia. L/S spine DJD s/p lumbar fusion, hardware removal, w/ TLIF POD #4 Gen weakness, postop. Parkinson disease, s/p DBS -Expect motor function to improve. Continue PT/OT. -DBS interrogated recently. -prn analgesics for postop pain. Acute hypoxemic resp failure -postop -will likely improve. -CXR shows ATX - also side effect from narcotics R drop foot, -chronic Anemia, mild -hemodynamically stable. Lethargy -improving -likely related to narcotics -DC long acting -cont supportive care -VTE ppx - Lovenox. Code status - full. Dispo - per nuerosurgery plan for rehab possible DC today Subjective: Feeling ok. C/O headache today. Didn't sleep well. Objective: Vital Signs Temp Pulse Resp BP Pulse Ox 36.6 C 78 16 114/61 96 10/26/17 07:58 10/26/17 07:58 10/26/17 07:58 10/26/17 07:58 10/26/17 07:58 Laboratory Results 10/23/17 05:12 10/23/17 05:12 10/25/17 10/26/17 10/27/17 05:59 05:59 05:59 Intake Total 950 1400 Output Total 855 625 460 Balance 95 775 -460 - Physical Exam Constitutional: appears nourished, not in pain, chronically ill appearing Eyes: PERRL, anicteric sclera, EOMI Ears, Nose, Mouth, Throat: moist mucous membranes, hearing normal, ears appear normal Cardiovascular: No JVD, No tachycardia, No edema Respiratory: no respiratory distress, no rales or rhonchi, reduced air movement Gastrointestinal: normoactive bowel sounds, No tenderness, No ascites Skin: warm, normal color, No mottled Musculoskeletal: normal joint ROM, no joint effusions, generalized weakness Psychiatric: not anxious, not encephalopathic, poor insight, poor judgement, poor memory ICD10 Worksheet Patient Problems: Problems Problem Status Onset Spinal arthrodesis present Acute Parkinson disease Acute Fusion of lumbar spine Acute
--- NOTE | 2017-10-26 14:14 | ASMTLACE ---
LACE Length of stay for Answers: 2 days current admission Acuity / Level of Answers: Yes Care: Did the patient have an inpatient admission? Comorbidities - select Answers: Other all that apply # of Emergency department Answers: 0 visits in the last 6 months Score: 6 Date Signed: 10/26/2017 02:13 PM Electronically Signed By:KISHORE Lopez
--- NOTE | 2017-10-26 14:18 | ASDISCHSUM ---
Discharge Information Plan Status:Inpatient Rehab Medically Cleared to Leave:10/25/2017 Discharge Date:10/26/2017 02:07 PM D/C Disposition:[facility] D/C Disposition:Other Rehab, Not [place] Projected Discharge Date:10/24/2017 11:00 AM Transportation at D/C:Wheelchair Van Discharge Delay Reason: Follow-Up Date:10/24/2017 11:00 AM Discharge Slot: Final Diagnosis: Placement Information Referral Type:Rehabilitation Hospital Referral ID:[id number] Provider Name:[facility] Address 1:[address] Address 2: City:[place] Selection Factors: State:[place] Patient Contact Information Contact Name:DEYSI Relationship:Sister Address:[facility] City:[place] Alternate Phone: State/Zip Code:[place] [address] Email: Financial Information Financial Class: Primary Plan Desc:MEDICARE INPATIENT Primary Plan Number:[id number] Secondary Plan Desc:[employer]/MDR SUPPLEMENT Secondary Plan Number:[id number] Assessment Information [facility] Initial CM Assessment Living Arrangements What is your living Answers: Alone arrangement? Who do you live with? Type Of Residence What kind of residence do Answers: House you live in? Discharge Plan Comments Coordination Status Comments Notes: Pt is a 82 y/o man admitted for a adjacent level disease. PT and OT has been ordered and awaiting recommendations. Needs are TBD at this time. CM to follow. Plan: TBD Date Signed: 10/23/2017 10:41 AM Electronically Signed By:SEGUNDO Ralph [facility] [place] Length of stay for Answers: 2 days current admission Acuity / Level of Answers: Yes Care: Did the patient have an inpatient admission? Comorbidities - select Answers: Other all that apply # of Emergency department Answers: 0 visits in the last 6 months Score: 6 Date Signed: 10/26/2017 02:13 PM Electronically Signed By:KISHORE Lopez [facility] CM Progress Note CM Note CM Note Notes: Therapies are recommending inpatient rehab at this time. Dr. Holden will put in an order for inpatient rehab. Gabby King to continue to assess and eval for appropriateness of inpatient rehab. CM to follow. Plan: Inpatient rehab Date Signed: 10/23/2017 03:13 PM Electronically Signed By:SEGUNDO Ralph BC CM Progress Note CM Note CM Note Notes: Referral sent to [facility] as per Ben [place] [phone] pt first choice for inmtt rehab. CM to follow. Date Signed: 10/23/2017 04:36 PM Electronically Signed By:KISHORE Villafana [facility] CM Progress Note CM Note CM Note Notes: [facility] ([phone]) received referral and will assess pt. CM to follow. Date Signed: 10/24/2017 02:28 PM Electronically Signed By:KISHORE Villafana [facility] CM Progress Note CM Note CM Note Notes: [facility] can accept pt over the weekend if medically stable. They would require marycruz drains removed prior to d/c. Awa Roblero in [facility] CM should call [phone] over the weekend to arrange d/c. Date Signed: 10/25/2017 04:51 PM Electronically Signed By:KISHORE Villafana Intervention Information
== END 2017-10-26 14:07 | DRG 460 ==
LOC: F3N 06:44
PROVIDERS: ADMIT Neurological Surgery; ATTEND Neurological Surgery
PROC: 0ST20ZZ Resection of Lumbar Vertebral Disc, Open Approach (ICD-10-PCS; principal; 2017-10-22 09:00)
PROC: 0SP00AZ Removal of Interbody Fusion Device from Lumbar Vertebral Joint, Open Approach (ICD-10-PCS; principal; 2017-10-22 09:00)
PROC: 0SG10AJ Fusion of 2 or more Lumbar Vertebral Joints with Interbody Fusion Device, Posterior Approach, Anterior Column, Open Approach (ICD-10-PCS; principal; 2017-10-22 09:00)
PROC: 00NY0ZZ Release Lumbar Spinal Cord, Open Approach (ICD-10-PCS; principal; 2017-10-22 09:00)
PROC: 8E0WXBZ Computer Assisted Procedure of Trunk Region (ICD-10-PCS; principal; 2017-10-22 09:00)
PROC: 0SP30AZ Removal of Interbody Fusion Device from Lumbosacral Joint, Open Approach (ICD-10-PCS; principal; 2017-10-22 09:00)
PROC: 4A1004G Monitoring of Central Nervous Electrical Activity, Intraoperative, Open Approach (ICD-10-PCS; principal; 2017-10-22 09:00)
DX: M48.062 Spinal stenosis, lumbar region with neurogenic claudication (principal); M51.36 Other intervertebral disc degeneration, lumbar region; M43.26 Fusion of spine, lumbar region; G20 Parkinson's disease
CPT/HCPCS: 92610-GN; 97112-GP; 97116-GP; 97162-GP; 97166-GO; 97530-GO; 97530-GP; 97535-GO; C1713; C1762; G8978-GP-CM; G8979-GP-CJ; G8987-GO-CK; G8988-GO-CJ; G8996-GN-CJ; G8997-GN-CI; G8998-GN-CJ; J0171; J0690; J1650; J2274; J2370; J2405; J2704; J2765; J3010; J7060

== ENCOUNTER 2017-11-21 12:05 | Emergency (ER) | payer OTHER, MEDICARE ==
--- NOTE | 2017-11-21 13:04 | EDPHY ---
HPI/HX/ROS/PE/MDM Narrative: CHIEF COMPLAINT: Weakness, constipation HISTORY OF PRESENT ILLNESS: The patient is an 82 y/o male with a history of a lumbar fusion and Parkinson's disease complaining of general weakness, dizziness, and constipation. On , he had back surgery and was sent to a [facility] on 10/26/17. Around 1.5 weeks ago he was discharged home from the rehab center. 1 week ago he stopped taking Lovenox. He has been able to walk while in rehab and after being discharged home. His last bowel movement was 2 days ago. Today he developed nausea and worsening general weakness and constipation so he decided to visit Dr. Bolanos, his neurosurgeon. During today's visit he did not have a fever at this time and his surgical scar was healing well. His right foot has also been tingling and is more swollen than his left foot which is chronic. His back is still painful, for which he takes Oxycodone, 2 tablets BID. This morning he took Miralax for the constipation without relief. Does not use home oxygen. No history of CAD. No fever, chills, chest pain, shortness of breath, palpitations, vomiting, diarrhea, urinary complaints. REVIEW OF SYSTEMS: Aside from elements discussed in the HPI, a comprehensive 10-point review of systems was reviewed and is negative. PAST MEDICAL HISTORY: Parkinson's Disease, appendectomy, hernia surgery, right drop foot SOCIAL HISTORY: Daughter at bedside, lives at independent longterm facility VITAL SIGNS: Reviewed by me GENERAL: Well-developed, well-nourished, resting comfortably in no respiratory distress. HEENT: Atraumatic. Eyes: No icterus, no injection. Mouth: extremely dry mucous membranes. No erythema or lesions. Neck: supple with no adenopathy. LUNGS: Right-sided crackles at the base. Clear anteriorly. No wheezes or rales. CARDIAC: Regular rate and rhythm, no rubs, murmurs or gallops. ABDOMEN: Soft, nontender, nondistended, bowel sounds normal. BACK: Well-healing midline incision, no drainage. No CVA tenderness. EXTREMITIES: Trace swelling on the dorsum of right foot. No trauma. Range of motion is normal throughout. NEURO: Alert and oriented, grossly nonfocal. SKIN: Warm and dry, no rash. PSYCHIATRIC: Normal mentation, no agitation. Portions of this note were transcribed by a rn medical inpatient services. I personally performed a history, physical exam, medical decision making, and confirmed accuracy of information the transcribed note. ED Course: The patient is an 82 y/o male with a history of a lumbar fusion and Parkinson's disease presenting with general weakness, dizziness, and constipation. He is 1 month post-op from the lumbar fusion and is still taking Percocet. On exam, he has extremely dry mucous membranes. He also has right-sided crackles at the base but is clear anteriorly. On his lower back he has a well-healing midline incision without drainage. EKG, chest x-ray, and labs ordered. 1L IV NS administered. 1400: Patient's chest x-ray reveals emphysema with no acute findings. 1413: 12-LEAD EKG: Please see the full report in Trace Master. My interpretation: Normal sinus rhythm with a rate of 70, nonspecific IVCD with LAD. 1437: Patient's d-dimer is elevated. Chest CT ordered. 1545: Report from Radiology, no pulmonary embolism. 1615: Reassessed patient, he is feeling much better after fluids. He will now ambulate to the bathroom to see how his back pain and general weakness is. 1628: Reassessed patient he continues to feel better. He would like to be discharged home, which I am comfortable with. I have strongly encouraged him to increase his fluid intake. Return precautions provided; patient is comfortable with this plan. MDM: Differential diagnoses for the patient's symptom complex was considered including but not limited to dehydration, electrolyte abnormalities, anemia, pulmonary embolism, coronary artery disease, acute coronary syndrome, occult infection. - Data Points Imaging Results: CT Chest: Impression: 1. No pulmonary embolism. 2. Clear lungs. Findings and recommendations discussed with Dalia Oneil MD at 3:47 PM hour , 11/21/2017. Final report concurs with initial preliminary interpretation. Dictated By: Anaid Ware MD Imaging: Discussed imaging studies w/ call circuit worker Radiologist, I viewed and interpreted images myself Laboratory Results: Laboratory Results 11/21/17 13:45 11/21/17 13:45 Medications Given: Discontinued Medications Sodium Chloride (Ns) 1,000 mls @ 0 mls/hr IV ONCE ONE; Wide Open PRN Reason: Protocol Stop: 11/21/17 13:35 Last Admin: 11/21/17 13:56 Dose: 1,000 mls General Time Seen by Provider: 11/21/17 13:00 Initial Vital Signs: Initial Vital Signs Temperature (C) 36.9 C 11/21/17 12:13 Heart Rate 78 11/21/17 12:13 Respiratory Rate 18 11/21/17 12:13 Blood Pressure 151/76 H 11/21/17 12:13 O2 Sat (%) 92 11/21/17 12:13 O2 Delivery Mode Room Air Allergies/Adverse Reactions: Penicillins Allergy (Verified 11/21/17 12:09) Unknown Home Medications: Medication Instructions Recorded Carbidopa/Levodopa 25/100Mg 0.5 tab PO QID@,,1330,17 06/17/14 [Sinemet 25/100 MG (*)] Herbals/Supplements -Info Only 1 ea PO DAILY 06/17/14 Vitamin B Complex [B Complex] 1 each PO DAILY 06/17/14 Ascorbic Acid [Vitamin C 250 mg 250 mg PO DAILY 08/01/15 (*)] [place]-3 Fatty Acids [Fish Oil 1000 1,000 mg PO DAILY 08/01/15 mg (*)] Cholecalciferol Vit D3 [Vitamin D3 1,000 units PO DAILY 10/17/17 (*)] Escitalopram Oxalate [Lexapro 10 10 mg PO DAILY 10/17/17 MG] Ferrous Sulfate [Ferrous Sulf 325 325 mg PO TID 10/17/17 MG (*)] Gabapentin [Neurontin 300 MG (*)] 1,200 mg PO HS 10/17/17 Melatonin [Melatonin 5 mg] 5 mg PO HS 10/17/17 Pramipexole Di-HCl [Mirapex 0.25 0.25 mg PO QID@06,10,1330,17 10/17/17 mg (*)] methYLPHENIDATE HCL [Ritalin 10mg 10 mg PO DAILY@1330 10/17/17 (*)] Acetaminophen [Tylenol ES 500 mg 1,000 mg PO Q8H tab 10/26/17 (*)] Methocarbamol [Robaxin 750 mg (*)] 750 mg PO QID PRN #60 tab 10/26/17 Petrolat,Wht/Min Oil/Sod Chl 1 donald RTEYE PRN PRN opht.oint 10/26/17 [Refresh P.m. Ointment] Sennosides/Docusate Sodium 1 - 2 tab PO BID #30 tab 10/26/17 [Senokot-S] clonazePAM [Klonopin (*)] 0.5 mg PO HS #14 tab 10/26/17 oxyCODONE IR [Oxycodone Ir (*)] 5 - 10 mg PO Q4HRS PRN #90 tab 10/26/17 Neurontin 11/21/17 Ritalin 10mg (*) 11/21/17 Departure - Departure Disposition: Home, Routine, Self-Care Clinical Impression: Weakness, Dehydration Condition: Good Instructions: Dehydration (ED), Weakness (ED) Additional Instructions: Increase fluid intakes as much as possible. Follow up with your primary care physician within 72 hours for reevaluation. Return to the emergency department immediately for high fever, severe headache or neck pain, difficulty breathing, abdominal pain, or other worsening of condition. Referrals: CLEMENTE BARKLEY [Primary Care Provider] - As per Instructions Report Scribed for: Dalia Oneil Report Scribed by: Nargis Van Date of Report: 11/21/17 Time of Report: 13:03
[2017-11-21] MEDS ORDERED: NS 1,000 ML IV ONE (13:34)
[2017-11-21 13:58] VITALS: RESP 16
[2017-11-21 14:08] LABS: PLATELET COUNT 348 10^3/uL (150-400)
[2017-11-21 14:09] VITALS: TEMP 97.9
--- NOTE | 2017-11-21 14:14 | CPEKG ---
Heart Rate: 70 RR Interval: 857 P-R Interval: 204 QRSD Interval: 110 QT Interval: 380 QTC Interval: 410 P [place]: 73 QRS [place]: -39 T Wave [place]: 44 EKG Severity - ABNORMAL ECG - EKG Impression: SINUS RHYTHM EKG Impression: NONSPECIFIC IVCD WITH LAD Electronically Signed By: Dalia Oneil 21-Nov-2017 21:21:27
[2017-11-21] MEDS ORDERED: IOPAMIDOL (ISOVUE 370) 100 ML BTL IV ONE (14:43)
[2017-11-21 17:09] VITALS: BP 135/64; PULSE 92; O2SAT 92
== END 2017-11-21 17:07 | disposition home or self-care (01) ==
DX: R53.1 Weakness (principal); E86.0 Dehydration; G20 Parkinson's disease; E86.9 Volume depletion, unspecified
CPT/HCPCS: 71046; 71275; 93005; 96360; 99285; Q9967